=== PATIENT | female | born 1955 | race Caucasian/White ===

== ENCOUNTER 2021-02-15 17:19 | Inpatient (IN) | payer BC ==
[~2021-02-15] VITALS: Ht 167.6 cm; Wt 63.0 kg
[2021-02-15 17:20] VITALS: BP 94/60
[2021-02-15] MEDS ORDERED: CRESTOR10 MG PO (17:50)
[2021-02-15] MEDS ORDERED: ADDERALL 20 MG20 MG PO (17:50)
[2021-02-15] MEDS ORDERED: CARVEDILOL12.5 MG PO (17:50)
[2021-02-15] MEDS ORDERED: AMBIEN 10 MG TA10 MG PO (17:50)
[2021-02-15] MEDS ORDERED: BRINTELLIX10 MG PO (17:50)
[2021-02-15] MEDS ORDERED: ENTRESTO 24 MG1 EACH PO (17:50)
[2021-02-15 18:03] LABS: ABSOLUTE BASOPHILS 0.1 thou/uL (0.0-0.2); ABSOLUTE EOSINOPHILS 0.2 thou/uL (0.0-0.7); ABSOLUTE LYMPHOCYTES 1.1 thou/uL (0.8-5.3); ABSOLUTE MONOCYTES 1.3 thou/uL (0.0-1.2); ABSOLUTE NEUTROPHILS 13.7 thou/uL (1.6-8.1); BASOPHILS 0.3 %; HEMATOCRIT 42.2 % (37.0-47.0); HEMOGLOBIN 14.5 gm/dL (12.0-15.0); MCH 32.6 pg (26.0-34.0); MCHC 34.4 g/dL (28.0-37.0); MCV 94.6 fL (80.0-100.0); MONOCYTES 7.7 %; MPV 8.4 fl. (7.2-11.1); NUCLEATED RBCS 0 /100WBC; PLATELET COUNT* 275 thou/uL (150-400); RBC 4.46 mil/uL (4.20-5.00); RDW-CV 15.1 % (10.5-14.5); WBC 16.3 thou/uL (4.0-11.0)
[2021-02-15 18:12] LABS: CALCIUM 9.2 mg/dL (8.5-10.1); CREATININE 4.4 mg/dL (0.6-1.3); POTASSIUM 3.4 mmol/L (3.5-5.1)
[2021-02-15 18:16] LABS: ALBUMIN 4.1 g/dL (3.4-5.0); TOTAL BILIRUBIN 0.7 mg/dL (<0.1-1.0); TOTAL PROTEIN 7.9 g/dL (6.4-8.2)
[2021-02-15 20:50] VITALS: BP 95/57
--- NOTE | 2021-02-15 20:50 | NUR ---
PT ADMITTED TO FLOOR PER CART ACCOMPANIED BY ER STAFF WITH BELONGINGS. ORIENTED TO ROOM AND CALL LITE, HISTORY OBTAINED AND ASSESSMENT PERFORMED, SEE ADMIT NOTES. PT CO 4 PAIN TO LEFT SHOULDER, RECENT REVISION TO LEFT SHOULDER SURGERY PT STATES 01/05/21. PT STATES SHE HAS BEEN GOING TO PT FOR SHOULDER AND ONLY NEEDS TO WEAR SLING PRN. PT REQUESTING HOME MEDS FOR SLEEP AND RT TX, PAIN MED FOR SHOULDER-DR TO BE NOTIFIED FOR ORDERS. REQUESTING LUNCH BOX, GIVEN. CALL LITE IN EASY REACH, BED ALRM ON FOR SAFETY. IVF INFUSING LAC PLACED ON PUMP.
[2021-02-15 20:57] VITALS: BP 93/53
[2021-02-15] MEDS ORDERED: CLEOCIN HCL75 MG PO (21:42)
[2021-02-15] MEDS ORDERED: VENTOLIN HFA 1818 GM INH (21:43)
[2021-02-15] MEDS ORDERED: IPRAT-ALBUT 0.5-3 ML INH (21:44)
[2021-02-16 00:26] VITALS: BP 116/64
[2021-02-16] MEDS ORDERED: LANOXIN 0.25M0.25 M1 PO (00:27)
[2021-02-16] MEDS ORDERED: ADVAIR 500-501 EACH INH (00:28)
[2021-02-16] MEDS ORDERED: SPIRONOLACTONE25 MG PO (00:29)
[2021-02-16] MEDS ORDERED: CYMBALTA20 MG PO (00:30)
[2021-02-16 00:36] LABS: URINE BILIRUBIN NEGATIVE (Negative); URINE BLOOD NEGATIVE (Negative); URINE CLARITY CLEAR; URINE COLOR YELLOW; URINE GLUCOSE-RANDOM NEGATIVE (Negative); URINE KETONES NEGATIVE (Negative); URINE LEUKOCYTES-REFLEX NEGATIVE (Negative); URINE NITRITE-REFLEX NEGATIVE (Negative); URINE PROTEIN NEGATIVE (Negative); URINE SPECIFIC GRAVITY 1.015 (1.005-1.030); URINE UROBILINOGEN 0.2 E.U./dl (0.2-1.0)
[2021-02-16 04:30] VITALS: BP 102/47
[2021-02-16 04:44] VITALS: BP 72/41
--- NOTE | 2021-02-16 06:18 | NUR ---
PT SLEPT FAIRLY WELL AFTER SETTLING IN TO ROOM AFTER ADMIT. AOX4, PLEASANT. LAC IVF INFUSING PER PUMP. L SHOULDER BANDAID DRSG CHANGED TO SURGICAL INCISION SITE FROM DECEMBER, PICTURE TAKEN. TYLENOL GIVEN FOR PAIN, POTASSIUM TABS GIVEN FOR K 3.4. PT USING BEDPAN TO VOID, ORDERED BEDREST DUE TO SYNCOPE AT HOME RESULTING IN FALL ON COUCH. TELE VPACED. ROOM AIR.ATTEMPTED TO RECONCILE HOME MEDS BUT PT NOT RELIABE HISTORIAN ON DOSAGES AND EXACTLY WHAT MEDS SHE TAKES. ABLE TO USE CALL LITE AND MAKE NEEDS KNOWN, BED ALARM ON FOR SAFETY.
[2021-02-16 07:32] VITALS: BP 76/39
--- NOTE | 2021-02-16 08:30 | NUR ---
ASSUMED CARE OF PT THIS AM AROUND 07- MANAGER TRAFFIC IN PLACE ORDERED, TRACING AV-PACED WITH NOTED PACEMAKER- UPON ASSESSMENT PT NOTED TO BE RESTING IN BED- PT A&O X4- CONT OF B/B- ASSIST X1 WITH TRANSFERS R/T WEAKNESS, SAFETY- LCTA, RESP EVEN AND UN-LABORED- VSS, O2 SAT 98% ON RA- BP NOTED TO BE LOW THIS AM; NOTIFIED WITH ORDERS RECIEVED FOR 1L BOLUS AND CURRENLTY INFUSSING PRESCRIBED- ABD SOFT/FLAT/NON-TENDER, BS X4 QUADS- BM REPORTED 02/15/21- IV NOTED TO LEFT FA INTACT, IVF INFUSSING PRESCRIBED- GOOD PO INTAKE NOTED THIS AM WITH BREAKFAST- LEFT SHOULDER PAIN THIS AM 11/23 RELATED TO RECENT SURGERY- AGUSTINA NOTED C/D/I- LIMITED ROM NOTED- CALL LIGHT ADN PERSONAL BELONGINGS WITH IN REACH- HOURLY ROUNDS IN PLACE R/T SAFETY/NEEDS- ALL NEEDS MET AT THIS TIME
[2021-02-16 08:39] LABS: AMP/METHAMP Negative (Negative); BARBITURATES Negative (Negative); BENZODIAZEPINES Negative (Negative); COCAINE Negative (Negative); METHADONE Negative (Negative); OPIATES Negative (Negative); PCP Negative (Negative); THC Negative (Negative)
[2021-02-16 08:54] LABS: ABSOLUTE BASOPHILS 0.1 thou/uL (0.0-0.2); ABSOLUTE EOSINOPHILS 0.4 thou/uL (0.0-0.7); ABSOLUTE LYMPHOCYTES 0.9 thou/uL (0.8-5.3); ABSOLUTE MONOCYTES 0.8 thou/uL (0.0-1.2); ABSOLUTE NEUTROPHILS 5.2 thou/uL (1.6-8.1); BASOPHILS 0.7 %; HEMATOCRIT 37.7 % (37.0-47.0); HEMOGLOBIN 12.6 gm/dL (12.0-15.0); LYMPHOCYTES 12.7 %; MCH 32.5 pg (26.0-34.0); MCHC 33.4 g/dL (28.0-37.0); MCV 97.3 fL (80.0-100.0); MONOCYTES 10.8 %; MPV 8.3 fl. (7.2-11.1); NUCLEATED RBCS 0 /100WBC; PLATELET COUNT* 203 thou/uL (150-400); POLYS 70.8 %; RBC 3.87 mil/uL (4.20-5.00); RDW-CV 15.1 % (10.5-14.5); WBC 7.3 thou/uL (4.0-11.0)
[2021-02-16 09:08] LABS: ALBUMIN 3.4 g/dL (3.4-5.0); CALCIUM 7.8 mg/dL (8.5-10.1); POTASSIUM 4.1 mmol/L (3.5-5.1); TOTAL BILIRUBIN 0.4 mg/dL (<0.1-1.0); TOTAL PROTEIN 6.6 g/dL (6.4-8.2)
[2021-02-16 09:09] LABS: CREATININE 2.4 mg/dL (0.6-1.3)
--- NOTE | 2021-02-16 09:29 | EKG ---
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: ONIEL : 1955 Requested By: Ariel Thomas Order Number: [id number] MD: Jem Daniels Measurements Intervals [place] Rate: 61 P: 30 DC: 170 QRS: 154 QRSD: 156 T: -33 QT: 472 QTc: 476 Interpretive Statements A-V dual-paced rhythm with some inhibition No further analysis attempted due to paced rhythm No previous ECG available for comparison Electronically Signed On 02-16-2021 9:29:46 CDT by Jem Daniels [email or web address] <ELECTRONICALLY SIGNED> By: Merlin Daniels MD, [facility] 02/16/21 0929 1754 1754 Merlin Daniels MD, [facility] /EPI
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
--- NOTE | 2021-02-16 14:46 | 2DMMODE ---
[place] [address] 2 D/M-MODE ECHOCARDIOGRAM Name: ANA MARCOS Room: [address] IN [facility].#: [id number] Admission: 02/15/21 Attend Phys: Loni Mendoza, Discharge: Date of : 55 Date of Service: 02/16/21 1446 Report #: [id number] THIS REPORT FOR: cc: Agustin Panda MD, [place] S. MD Biggs, F. Douglas MD [facility] ~ APPROVED REPORT Study performed: 02/16/2021 09:03:15 EXAM: Comprehensive 2D, Doppler, and color-flow Echocardiogram Patient Location: In-Patient Room #: 202 BSA: 1.71 HR: 60 bpm BP: 116/64 mmHg Other Information Study Quality: Good Indications Congestive Heart Failure Syncope 2D Dimensions IVSd: 10.17 (7-11mm) LVOT Diam: 20.13 (18-24mm) LVDd: 52.75 mm PWd: 10.92 (7-11mm) Ascending Ao: 30.22 (22-36mm) LVDs: 42.48 (25-40mm) Aortic Root: 27.81 mm Volumes Left Atrial Volume (Systole) LA ESV Index: 13.20 mL/m2 Aortic Valve AoV Peak Giorgi.: 1.91 m/s AO Peak Gr.: 14.63 mmHg LVOT Max P.13 mmHg AO Mean Gr.: 7.03 mmHg LVOT Mean P.72 mmHg LVOT Max V: 1.88 m/s AO V2 VTI: 25.96 cm LVOT Mean V: 1.17 m/s MAKENNA (VTI): 3.51 cm2 LVOT V1 VTI: 28.61 [place] [address] 2 D/M-MODE ECHOCARDIOGRAM Name: ANA MARCOS Room: [address]#: [id number] Admission: 02/15/21 Attend Phys: Loni Mendoza, Discharge: Date of : 55 Date of Service: 02/16/21 1446 Report #: [id number] Mitral Valve E/A Ratio: 0.59 MV Decel. Time: 319.08 ms MV E Max Giorgi.: 0.70 m/s MV PHT: 92.53 ms MVA (PHT): 2.38 cm2 TDI E/Lateral E': 8.75 E/Medial E': 8.75 Medial E' Giorgi.: 0.08 m/s Lateral E' Giorgi.: 0.08 m/s Pulmonary Valve PV Peak Giorgi.: 1.39 m/s PV Peak Gr.: 7.77 mmHg Tricuspid Valve RAP Estimate: 5.00 mmHg TR Peak Gr.: 30.61 mmHg RVSP: 35.61 mmHg PA Pressure: 35.61 mmHg Left Ventricle The left ventricle is normal size. Regional wall motion abnormalities are noted. 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 There is involvement of the anterior wall latera and l wall inferior wall as well. There is normal left ventricular wall thickness. Left ventricular systolic function is severely decreased. LVEF is 20-25%. Grade I - abnormal relaxation pattern. Right Ventricle The right ventricle is normal size. The right ventricular systolic function is normal. Device lead is present in the right ventricle. Atria The left atrium size is normal. Pacemaker lead is present in the right atrium. Aortic Valve The aortic valve is normal in structure. Mild aortic regurgitation. There is no aortic valvular stenosis. Mitral Valve The mitral valve is normal in structure. Mild mitral regurgitation. No evidence of mitral valve stenosis[place] [address] 2 D/M-MODE ECHOCARDIOGRAM Name: ANA MARCOS Room: [address] IN .R.#: [id number] Admission: 02/15/21 Attend Phys: Loni Mendoza, Discharge: Date of : 55 Date of Service: 02/16/21 1446 Report #: [id number] The tricuspid valve is normal in structure. Mild tricuspid regurgitation. Pulmonic Valve The pulmonary valve is normal in structure. There is no pulmonic valvular regurgitation. Great Vessels The aortic root is normal in size. IVC is normal in size and collapses >50% with inspiration. Pericardium There is no pericardial effusion. <Conclusion> LVEF is 20-25%. Grade I - abnormal relaxation pattern. Left ventricular systolic function is severely decreased. There is normal left ventricular wall thickness. The left ventricle is normal size. Regional wall motion abnormalities are noted. 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 There is involvement of the anterior wall latera and l wall inferior wall as well. Pacemaker lead is present in the right atrium. Mild aortic regurgitation. Mild mitral regurgitation. Mild tricuspid regurgitation. <ELECTRONICALLY SIGNED> By: Merlin Daniels MD, FACC 02/16/21 1446 1446 1446 Merlin Daniels MD, FACC /INF
--- NOTE | 2021-02-16 15:45 | NUR ---
Pt is A&O. Resides at home alone. Independent. No DME. No hx of HH or SNF. Renal following. CM to provide Pt with info on getting a free air conditioner once back home. Anticipate dc in a few days.
[2021-02-16 16:00] VITALS: BP 90/44
[2021-02-16 20:59] VITALS: BP 102/54
[2021-02-17 00:30] VITALS: BP 98/57
[2021-02-17 04:50] LABS: ABSOLUTE BASOPHILS 0.1 thou/uL (0.0-0.2); ABSOLUTE EOSINOPHILS 0.5 thou/uL (0.0-0.7); ABSOLUTE LYMPHOCYTES 1.3 thou/uL (0.8-5.3); ABSOLUTE MONOCYTES 0.8 thou/uL (0.0-1.2); ABSOLUTE NEUTROPHILS 6.5 thou/uL (1.6-8.1); BASOPHILS 0.6 %; EOSINOPHILS 5.2 %; HEMATOCRIT 33.9 % (37.0-47.0); HEMOGLOBIN 11.4 gm/dL (12.0-15.0); LYMPHOCYTES 14.5 %; MCH 32.8 pg (26.0-34.0); MCHC 33.5 g/dL (28.0-37.0); MCV 97.9 fL (80.0-100.0); MONOCYTES 8.8 %; MPV 8.5 fl. (7.2-11.1); NUCLEATED RBCS 0 /100WBC; PLATELET COUNT* 204 thou/uL (150-400); POLYS 70.9 %; RBC 3.47 mil/uL (4.20-5.00); RDW-CV 15.1 % (10.5-14.5); WBC 9.2 thou/uL (4.0-11.0)
[2021-02-17 05:03] LABS: CALCIUM 7.8 mg/dL (8.5-10.1); POTASSIUM 4.1 mmol/L (3.5-5.1)
--- NOTE | 2021-02-17 05:11 | NUR ---
PT IS ABLE TO COMMUNICATE HER NEEDS TO STAFF EFFECTIVELY. SHE HAS DENIED THE NEED FOR PAIN MEDICATION UP TO THIS TIME. PT'S BP HAS BEEN LESS SOFT SO FAR THIS SHIFT, SO SHE HAS BEEN GETTING UP TO THE COMODE WITH STAFF AND TOLERATING IT WELL; SHE HAS DENIED ANY DIZZINESS UP TO THIS TIME. POSSIBLE DISCHARGE TODAY.
[2021-02-17 07:40] VITALS: BP 97/53
--- NOTE | 2021-02-17 08:46 | NUR ---
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
[2021-02-17 12:19] VITALS: BP 113/63
--- NOTE | 2021-02-17 13:45 | NUR ---
Pt med surg status. Renal following. waiting on preliminary blood cultures. ANTONIA spoke with Elisa with [facility] regarding hotline placed for living conditions. Elisa to call Pt to discuss. Anticipate dc tomorrow with HH.
[2021-02-17 16:36] VITALS: BP 116/65
[2021-02-17 20:54] VITALS: BP 109/60
[2021-02-17 23:55] VITALS: BP 124/64
[2021-02-18 04:03] VITALS: BP 149/75
[2021-02-18 04:24] LABS: ABSOLUTE BASOPHILS 0.1 thou/uL (0.0-0.2); ABSOLUTE EOSINOPHILS 0.6 thou/uL (0.0-0.7); ABSOLUTE LYMPHOCYTES 1.7 thou/uL (0.8-5.3); ABSOLUTE MONOCYTES 0.8 thou/uL (0.0-1.2); ABSOLUTE NEUTROPHILS 6.3 thou/uL (1.6-8.1); BASOPHILS 0.8 %; EOSINOPHILS 6.4 %; HEMOGLOBIN 11.8 gm/dL (12.0-15.0); LYMPHOCYTES 17.4 %; MCH 32.9 pg (26.0-34.0); MCHC 33.7 g/dL (28.0-37.0); MCV 97.6 fL (80.0-100.0); MONOCYTES 8.7 %; MPV 8.5 fl. (7.2-11.1); NUCLEATED RBCS 0 /100WBC; PLATELET COUNT* 204 thou/uL (150-400); POLYS 66.7 %; RBC 3.59 mil/uL (4.20-5.00); RDW-CV 15.1 % (10.5-14.5); WBC 9.5 thou/uL (4.0-11.0)
[2021-02-18 04:41] LABS: ALBUMIN 2.8 g/dL (3.4-5.0); CALCIUM 8.2 mg/dL (8.5-10.1); CREATININE 0.8 mg/dL (0.6-1.3); POTASSIUM 4.2 mmol/L (3.5-5.1); TOTAL BILIRUBIN 0.3 mg/dL (<0.1-1.0); TOTAL PROTEIN 5.7 g/dL (6.4-8.2)
--- NOTE | 2021-02-18 05:09 | NUR ---
PT IS ABLE TO COMMUNICATE HER NEEDS TO STAFF EFFECTIVELY. CURRENT PAIN MEDICATION REGIMEN HAS BEEN ADEQUATE FOR CONTROLLING HER PAIN UP TO THIS TIME. PT/OT CONSULTED. POSSIBLE DISCHARGE TO SNF/REHAB LATER TODAY.
--- NOTE | 2021-02-18 07:10 | NUR ---
CHANGE OF SHIFT REPORT GIVEN PATIENT SEEN AT BEDSIDE, IN BED RESTING ASSUMED PATIENT CARE
[2021-02-18 08:00] VITALS: BP 136/69
[2021-02-18] MEDS ORDERED: MINOCYCLINE HC100 M2 PO (11:49)
[2021-02-18 12:00] VITALS: BP 119/59
--- NOTE | 2021-02-18 12:31 | NUR ---
Pt medically stable to dc. Cleared to dc home by PT. Pt refusing HH. CM to update Elisa with [facility]. Pt plans to f/u with her psychiatrist and Dr for shoulder. No futher needs.
[2021-02-18 12:44] VITALS: BP 119/59
--- NOTE | 2021-02-18 13:45 | NUR ---
PATIENT DCD TO HOME DC INSTRUCTIONS GIVEN, AND SIGNED COPIES GIVEN IV ABND HEART MONIOR REMOVED PATIENT WALKED OUT TO [facility]
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
== END 2021-02-18 13:49 | disposition home or self-care (01) | DRG 871 ==
LOC: M.ERS 17:19 → M.TBA-ER 18:27 → M.2W 18:27
PROVIDERS: Emergency Medicine Emergency Medical Services; Internal Medicine; ADMIT Internal Medicine; ATTEND Internal Medicine
DX: A41.9 Sepsis, unspecified organism (principal); N17.0 Acute kidney failure with tubular necrosis; T67.01XA Heatstroke and sunstroke, initial encounter; I50.22 Chronic systolic (congestive) heart failure; M00.9 Pyogenic arthritis, unspecified; I95.9 Hypotension, unspecified; F17.210 Nicotine dependence, cigarettes, uncomplicated; Z20.822 Contact with and (suspected) exposure to COVID-19; G56.32 Lesion of radial nerve, left upper limb; I25.10 Atherosclerotic heart disease of native coronary artery without angina pectoris; J44.9 Chronic obstructive pulmonary disease, unspecified; I25.5 Ischemic cardiomyopathy; X58.XXXA Exposure to other specified factors, initial encounter; Y93.89 Activity, other specified; Y92.89 Other specified places as the place of occurrence of the external cause; Z88.0 Allergy status to penicillin; Y99.8 Other external cause status; Z90.710 Acquired absence of both cervix and uterus; Z95.0 Presence of cardiac pacemaker; Z85.43 Personal history of malignant neoplasm of ovary